=== PATIENT | male | born 1995 | race African-American/Black ===

== ENCOUNTER 2017-01-18 12:46 | Emergency (ER) | payer SELFPAY ==
[~2017-01-18] VITALS: Ht 188 cm; Wt 69.9 kg
[2017-01-18 12:52] VITALS: BP 154/76
--- NOTE | 2017-01-18 13:38 | RAD ---
Indication fall. Pain. AP and lateral views of the lumbar spine were obtained as well as a coned view targeted to the lumbosacral junction. Vertebral height alignment and disc spaces appear normal. No bony abnormality is seen. There is minimal wedging of T12 likely reflecting a normal variant IMPRESSION: Normal lumbar spine. Minimal wedging of T12 likely reflecting a normal variant
[2017-01-18] MEDS ORDERED: CYCL10TA2 PO (13:43)
--- NOTE | 2017-01-18 13:43 | PHYS DOC ---
Past Medical History Past Medical History: Asthma Additional Past Medical Histor: SEASONAL ALLERGIES Past Surgical History: No Surgical History Alcohol Use: None Drug Use: None Adult General Chief Complaint Chief Complaint: MECHANICAL FALL HPI HPI Patient is a 21 year old male who presents with mild right low back pain that began early this morning around 2 AM after he fell off a stage during a concert. He states he fell 3 feet down. Patient denies any loss of consciousness. Patient denies any pain radiating to bilateral lower extremities. Denies any loss of bowel bladder function. Review of Systems Review of Systems Constitutional: Denies fever or chills [] GI: Denies abdominal pain, nausea, vomiting, bloody stools or diarrhea [] : Denies dysuria or hematuria [] Musculoskeletal: Right low back pain Integument: Denies rash or skin lesions [] Neurologic: Denies headache, focal weakness or sensory changes [] Allergies Allergies Allergies Coded Allergies Type Severity Reaction Last Updated Verified tramadol Allergy Severe "HARD TO BREATHE" 01/18/17 No Physical Exam Physical Exam Constitutional: Well developed, well nourished, no acute distress, non-toxic appearance. [] Abdomen: Bowel sounds normal, soft, no tenderness, no masses, no pulsatile masses. [] Skin: Warm, dry, no erythema, no rash. [] Back: Diffuse paraspinal muscle tenderness to the right lumbar spine, no midline lumbar spine tenderness, no cervical spine or thoracic spine tenderness , no CVA tenderness. [] Extremities: No tenderness, no cyanosis, no clubbing, ROM intact, no edema. [] Neurologic: Alert and oriented X 3, normal motor function, normal sensory function, no focal deficits noted. [] Psychologic: Affect normal, judgement normal, mood normal. [] Current Patient Data Vital Signs Vital Signs Date Time Temp Pulse Resp B/P (MAP) Pulse Ox O2 Delivery O2 Flow Rate FiO2 01/18/17 12:52 98.1 65 18 98 Room Air 98.1 EKG EKG [] Radiology/Procedures Radiology/Procedures []PROCEDURE: LUMBAR SPINE 2-3V Indication fall. Pain. AP and lateral views of the lumbar spine were obtained as well as a coned view targeted to the lumbosacral junction. Vertebral height alignment and disc spaces appear normal. No bony abnormality is seen. There is minimal wedging of T12 likely reflecting a normal variant IMPRESSION: Normal lumbar spine. Minimal wedging of T12 likely reflecting a normal variant DICTATED and SIGNED BY: JOSE GARCIA MD DATE: 01/18/17 [id number] CC: GISSELL LIVE APRN; NO PCP; NON,STAFF ~ Course & Med Decision Making Course & Med Decision Making Pertinent Labs and Imaging studies reviewed. (See chart for details) Patient is in the ED with right low back pain after falling off a 3 ft stage this morning during a concert. Lumbar x-rays interpreted by radiologist were negative for any acute findings. Discharged with cyclobenzaprine. Ice and heat recommended to the lumbar spine. Follow-up with PCP in 1-2 weeks. Dragon Disclaimer Dragon Disclaimer This electronic medical record was generated, in whole or in part, using a voice recognition dictation system. Departure Departure Impression: Primary Impression: Lumbar contusion Additional Impression: Fall from height of less than 3 feet Disposition: 01 HOME, SELF-CARE Condition: STABLE Referrals: NO PCP (PCP) Follow-up with your doctor in one week Patient Instructions: Back Pain, Adult, Contusion Additional Instructions: You were seen for lumbar contusion after falling off a stage. Apply heat or ice to the affected area. Take the prescribed medicine as needed. Do not drive or operate machinery on the medication. Scripts Cyclobenzaprine Hcl (CYCLOBENZAPRINE HCL) 10 Mg Tablet 1 TAB PO TID, #30 TAB Prov: GISSELL LIVE APRN 01/18/17 Problem Qualifiers Primary Impression: Lumbar contusion Encounter type: initial encounter Qualified Codes: S30.0XXA - Contusion of lower back and pelvis, initial encounter GISSELL LIVE APRN Jan 18, 2017 13:43
== END 2017-01-18 13:51 | disposition home or self-care (01) ==
LOC: ER 12:46
DX: S30.0XXA Contusion of lower back and pelvis, initial encounter (principal); J45.909 Unspecified asthma, uncomplicated; Z88.8 Allergy status to other drugs, medicaments and biological substances; W17.89XA Other fall from one level to another, initial encounter; Y93.89 Activity, other specified; Y92.89 Other specified places as the place of occurrence of the external cause; Y99.8 Other external cause status
CPT/HCPCS: 72100; 99284

== ENCOUNTER 2019-10-31 11:02 | Emergency (ER) | payer SELFPAY ==
[~2019-10-31] VITALS: Ht 188 cm; Wt 79.5 kg
[~2019-10-31 11:02] MED LIST: CYCL10TA2 PO
[2019-10-31 11:10] VITALS: BP 130/77
--- NOTE | 2019-10-31 12:04 | PHYS DOC ---
Past Medical History Past Medical History: No Pertinent History, Asthma Additional Past Medical Histor: SEASONAL ALLERGIES Past Surgical History: No Surgical History Smoking Status: Current Every Day Smoker Additional Information: SMOKES BLACK AND MILDS. Alcohol Use: None Drug Use: None General Adult EDM: Chief Complaint: LACERATION/AVULSION HPI: HPI: Patient is a 24 year old male who presents with lacerations to his right forearm that occurred after cutting his arm on a chainsaw around 10:00 this morning. Patient is unsure when his last tetanus shot was but believes it was longer than 5 years ago. Patient is reporting pain to his right forearm. He rates his pain 6 out of 10, there is no radiation of pain, no alleviating factors, pain is worse with movement. Review of Systems: Review of Systems: Constitutional: Denies fever or chills. [] Integument: See HPI Psychiatric: Denies depression or anxiety. [] Heart Score: Risk Factors: Risk Factors: DM, Current or recent (<one month) smoker, HTN, HLP, family history of CAD, obesity. Risk Scores: Score 0 - 3: 2.5% MACE over next 6 weeks - Discharge Home Score 4 - 6: 20.3% MACE over next 6 weeks - Admit for Clinical Observation Score 7 - 10: 72.7% MACE over next 6 weeks - Early Invasive Strategies Current Medications: Current Medications Medications (Trade) Dose Ordered Sig/Milton Start Time Stop Time Status Last Admin Dose Admin Diphtheria/ Tetanus/Acell Pertussis (ADACEL TDap SYRINGE) 0.5 ml ONCE ONCE 10/31/19 12:30 10/31/19 12:31 Lidocaine/ Epinephrine (LIDOCAINE 1%-EPI 1:100,000 Multi-Dose) 20 ml 1X ONCE 10/31/19 12:30 10/31/19 12:31 Allergies: Allergies: Allergies Coded Allergies Type Severity Reaction Last Updated Verified tramadol Allergy Severe "HARD TO BREATHE" 01/18/17 No Physical Exam: PE: Constitutional: Well developed, well nourished, no acute distress, non-toxic ap pearance. [] HENT: Normocephalic, atraumatic, bilateral external ears normal, nose normal. [] Eyes: PERRLA, EOMI, conjunctiva normal, no discharge. [] Neck: Normal range of motion, no stridor. [] Cardiovascular:Heart rate regular rhythm Lungs & Thorax: Respirations even and unlabored, no retractions, no respiratory distress Skin: Warm, dry, no erythema; right forearm: 2 lacerations to right forearm: medial laceration is 4 cm, no active bleeding, no visible FB, lateral laceration is 3 cm, no active bleeding, no visible FB Extremities: RFA: No cyanosis, no edema, no obvious deformity, no bony tenderness, PMS intact Neurologic: Alert and oriented X 3, no focal deficits noted. [] Psychologic: Affect normal, judgement normal, mood normal. [] Current Patient Data: Vital Signs: Vital Signs Date Time Temp Pulse Resp B/P (MAP) Pulse Ox O2 Delivery O2 Flow Rate FiO2 10/31/19 11:10 98.1 66 16 130/77 (94) 100 Room Air 98.1 EKG: EKG: [] Radiology/Procedures: Radiology/Procedures: PROCEDURE: FOREARM RIGHT EXAM: RIGHT FOREARM 2 VIEWS. HISTORY: Laceration. COMPARISON: None. FINDINGS: A soft tissue laceration is noted along the medial aspect of the proximal forearm. There is no radiopaque foreign body. No fractures are identified. The joint spaces and alignment of the wrist and elbow appear maintained. IMPRESSION: 1. No fracture or radiopaque foreign body. Laceration Repair by me: Anesthesia: 1% lidocaine with epi locally Location: Medial anterior right forearm Tendon/Joint/Nerves: No injury Foreign body: None detected after copious irrigation and exploration with chlorhexidine and NS Technique: 6 Simple Interrupted Sutures with 4-0 Prolene Complexity: No subcutaneous sutures/mucosal repair/edge excision Post Closure Length: 4 cm Anesthesia: 1% lidocaine with epi locally Location: Lateral anterior right forearm Tendon/Joint/Nerves: No injury Foreign body: None detected after copious irrigation and exploration with chlorhexidine and NS Technique: 5 Simple Interrupted Sutures with 4-0 Prolene Complexity: No subcutaneous sutures/mucosal repair/edge excision Post Closure Length: 3 cm Patient's bleeding was easily controlled in the department and there is no indication of anemia. No evidence of compartment syndrome, neurologic injury, vascular injury, open joint, tendon laceration, or foreign body. Patient is appropriate for outpatient follow up. Scar minimization instructions given. [] Course & Med Decision Making: Course & Med Decision Making Pertinent Labs and Imaging studies reviewed. (See chart for details) Patient is a 24-year-old male who presented emergency department with complaints of lacerations to his right forearm after using a chainsaw. X-ray of the right forearm revealed no retained foreign body or bony abnormalities. Laceration repair as documented above. I instructed the patient to leave the dressing that was applied today in place for 24 hours then wash the affected area and apply antibiotic ointment twice daily until the sutures are removed. Return to the ER follow-up with a primary care doctor in 2 weeks for suture removal. Patient verbalized an understanding of home care, medications, follow-up, and return to ED instructions and was in agreement with the plan of care. [] Dragon Disclaimer: Dragon Disclaimer: This electronic medical record was generated, in whole or in part, using a voice recognition dictation system. Departure Departure Impression: Primary Impression: Laceration of right forearm without complication Qualified Codes: S51.811A - Laceration without foreign body of right forearm, initial encounter Additional Impression: Need for Tdap vaccination Disposition: 01 HOME, SELF-CARE Condition: STABLE Referrals: NO PCP (PCP) Patient Instructions: Laceration Care, Adult, [id number] Additional Instructions: Keep the area clean and dry. You may take Tylenol or ibuprofen as needed for pain. Keep the dressing that was placed today on for 24 hours then change the dressing twice a day and apply antibiotic ointment to the area. Follow-up with your primary care doctor, or return to the emergency room in 14 days to have the sutures removed, sooner if you develop signs of infection including: redness, warmth, drainage, or a fever. Justicifation of Admission Dx: Justifications for Admission: Justification of Admission Dx: N/A MAXIMINO FERNANDEZ APRN Oct 31, 2019 12:04
--- NOTE | 2019-10-31 12:07 | RAD ---
EXAM: RIGHT FOREARM 2 VIEWS. HISTORY: Laceration. COMPARISON: None. FINDINGS: A soft tissue laceration is noted along the medial aspect of the proximal forearm. There is no radiopaque foreign body. No fractures are identified. The joint spaces and alignment of the wrist and elbow appear maintained. IMPRESSION: 1. No fracture or radiopaque foreign body. Electronically signed by: Anthony Sandoval MD (10/31/2019 12:04 PM) [id number]
[2019-10-31] MEDS ORDERED: LIDOCAINE 1%/EPI 1:100,000 20 ML VIAL. SQ ONE (12:30)
[2019-10-31] MEDS ORDERED: DIPH,PERTUSS(ACELL),TET VAC/PF 0.5 ML SYRINGE. VAX IM ONE (12:30)
== END 2019-10-31 14:05 | disposition home or self-care (01) ==
LOC: ER 11:02
DX: S51.811A Laceration without foreign body of right forearm, initial encounter (principal); J45.909 Unspecified asthma, uncomplicated; F17.200 Nicotine dependence, unspecified, uncomplicated; W26.8XXA Contact with other sharp object(s), not elsewhere classified, initial encounter; Y93.89 Activity, other specified; Y92.89 Other specified places as the place of occurrence of the external cause; Y99.8 Other external cause status
CPT/HCPCS: 12002; 73090; 90471; 90715; 99283; J3490

== ENCOUNTER 2019-11-17 17:41 | Emergency (ER) | payer SELFPAY ==
[~2019-11-17] VITALS: Ht 188 cm; Wt 84.0 kg
[2019-11-17 18:18] VITALS: BP 128/60
--- NOTE | 2019-11-17 18:27 | PHYS DOC ---
Past Medical History Past Medical History: No Pertinent History, Asthma Additional Past Medical Histor: SEASONAL ALLERGIES Past Surgical History: No Surgical History Smoking Status: Current Every Day Smoker Alcohol Use: None Drug Use: None General Adult EDM: Chief Complaint: SUTURE/STAPLE REMOVAL HPI: HPI: Patient is a 24 year old female who presents to the ED today for suture removal from the right forearm. Patient reports sutures have been in for 2 weeks. Review of Systems: Review of Systems: Constitutional: Denies fever or chills. [] Musculoskeletal: Denies back pain or joint pain. [] Integument: Suture removal from the right forearm Neurologic: Denies headache, focal weakness or sensory changes. [] Psychiatric: Denies depression or anxiety. [] Heart Score: Risk Factors: Risk Factors: DM, Current or recent (<one month) smoker, HTN, HLP, family history of CAD, obesity. Risk Scores: Score 0 - 3: 2.5% MACE over next 6 weeks - Discharge Home Score 4 - 6: 20.3% MACE over next 6 weeks - Admit for Clinical Observation Score 7 - 10: 72.7% MACE over next 6 weeks - Early Invasive Strategies Allergies: Allergies: Allergies Coded Allergies Type Severity Reaction Last Updated Verified tramadol Allergy Severe "HARD TO BREATHE" 01/18/17 No Physical Exam: PE: Constitutional: Well developed, well nourished, no acute distress, non-toxic appearance. [] Skin: Warm, dry, right forearm with 2 well approximated laceration site, the past on has 6 interrupted sutures, the next 1 has 5 interrupted sutures, no signs of infection. Back: No tenderness, no CVA tenderness. [] Extremities: No tenderness, no cyanosis, no clubbing, ROM intact, no edema. [] Neurologic: Alert and oriented X 3, normal motor function, normal sensory function, no focal deficits noted. [] Psychologic: Affect normal, judgement normal, mood normal. [] EKG: EKG: [] Radiology/Procedures: Radiology/Procedures: [] Course & Med Decision Making: Course & Med Decision Making Pertinent Labs and Imaging studies reviewed. (See chart for details) Sutures were removed from the right forearm. Patient provided return precautions. Dragon Disclaimer: Dragon Disclaimer: This electronic medical record was generated, in whole or in part, using a voice recognition dictation system. Departure Departure Impression: Primary Impression: Visit for suture removal Disposition: HOME, SELF-CARE Condition: STABLE Referrals: NO PCP (PCP) follow up in 1-2 weeks Patient Instructions: Sutured Wound Care Additional Instructions: Keep your laceration sites clean and dry. Follow-up with your own doctor in 1 to 2 weeks Justicifation of Admission Dx: Justifications for Admission: Justification of Admission Dx: N/A GISSELL LIVE APRN Nov 17, 2019 18:27
== END 2019-11-17 18:52 | disposition home or self-care (01) ==
LOC: ER 17:41
DX: S51.811D Laceration without foreign body of right forearm, subsequent encounter (principal); J45.909 Unspecified asthma, uncomplicated; F17.200 Nicotine dependence, unspecified, uncomplicated; X58.XXXD Exposure to other specified factors, subsequent encounter
CPT/HCPCS: 99281